=== PATIENT | female | born 1985 | race Two or more races ===

== ENCOUNTER → 2018-08-15 | Outpatient (CLI) | payer BC ==
[2014-12-18 11:24] VITALS: BMI 28.4
[~2018-08-15] MED LIST: ACE3 PO; Benzocaine 60 ML TP; DOCU240C67 PO; HYDR-385 PO; IBU600 PO; IBUP800T37 PO; KET10 PO; LEVO1TAB31 PO; Lanolin TP; MOM PO; PREN-67 PO; PREN1TAB15 PO; TUCKS TP
--- NOTE | 2018-08-15 11:20 | RADIOLOGY IMAGING REPORT ---
FACILITY: [facility] - [place] PATIENT NAME: Doris Duncan : 1985 MR: [id number] V: [id number] EXAM DATE: ORDERING PHYSICIAN: KENNEY COOLEY TECHNOLOGIST: Location: [facility] [place] Patient: Doris Duncan : 1985 Visit/Account:[id number] Date of Sevice: 08/15/2018 [facility] [place] TRANVAGINAL NON-OB HISTORY: OVULATION BLEEDING TECHNIQUE: Transvaginal ultrasound pelvis. COMPARISON: None. FINDINGS: Uterus: ; 8.8 cm length x 4.6 cm AP x 5.8 cm transverse. Myometrium: Unremarkable. Endometrium: Endometrium appears thickened and heterogeneous; double thickness 24.4 mm. Cervix: Nabothian cysts. Ovaries: Right - 3.4 x 3.3 x 2.4 cm. The 1.1 cm cyst in the right ovary Left - 2.5 x 2.1 x 3.4 cm Blood flow is documented in each ovary by duplex Doppler ultrasound. Adnexa: Grossly unremarkable. Free pelvic fluid: Trace. IMPRESSION: The endometrium appears thickened and heterogeneous measuring 24.4 mm in thickness Nabothian cysts 1.1 cm right ovarian cyst Trace amount of free pelvic fluid Report Dictated By: France Gonzalez MD at 08/15/2018 11:12 AM Report E-Signed By: France Gonzalez MD at 08/15/2018 11:16 AM WSN:[id number]
== END ==
LOC: RAD 09:19
PROVIDERS: ATTEND Obstetrics & Gynecology
DX: Z02.9 Encounter for administrative examinations, unspecified (principal)